=== PATIENT | female | born 1980 | race Native Hawaiian/Other Pacific Islander ===

== ENCOUNTER 2022-06-27 08:28 | Outpatient (CLI) | payer BC | END 2022-06-27 19:08 | disposition home or self-care (01) | LOC: US 08:28 | PROVIDERS: ATTEND Nurse Practitioner Family | DX: R74.8 Abnormal levels of other serum enzymes (principal) ==

== ENCOUNTER 2022-10-24 09:36 | Outpatient (CLI) | payer BC | END 2022-10-24 18:57 | disposition home or self-care (01) | LOC: US 09:36 | PROVIDERS: ATTEND Nurse Practitioner Family | DX: E06.3 Autoimmune thyroiditis (principal) ==